=== PATIENT | male | born 2000 | race Caucasian/White ===

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

== ENCOUNTER 2020-12-24 12:22 | Emergency (ER) | payer MEDICAID, OTHER ==
[2020-12-24 12:37] VITALS: BP 158/101; PULSE 70
[2020-12-24] MEDS ORDERED: ceFAZolin 1 GM in Premix Bag 1 BAG IV ONE (13:25)
--- NOTE | 2020-12-24 13:38 | CR ---
Right second finger: 4 radiographs of the right second finger were obtained. Comparison: No previous study. Fracture is seen within the distal proximal phalanx of the second finger with mild displacement. Soft tissue swelling is noted. No additional bony abnormality is appreciated. Impression: 1. Mildly displaced fracture within the distal proximal phalanx of the right second finger. 2. Soft tissue swelling. Diagnostic code #3
[2020-12-24] MEDS ORDERED: Acetaminophen/HYDROcodone 325-5 MG Tab PO ONE (13:50)
--- NOTE | 2020-12-24 13:56 | EDM.PDOC ---
ED HPI GENERAL MEDICAL PROBLEM - General Chief Complaint: Upper Extremity Injury/Pain Stated Complaint: SMASHED FINGER Time Seen by Provider: 12/24/20 12:28 Source of Information: Reports: Patient, RN Notes Reviewed History Limitations: Reports: No Limitations - History of Present Illness INITIAL COMMENTS - FREE TEXT/NARRATIVE: Patient is a 20-year-old male presenting to the emergency department with complaints of crush injury to the right index finger. Reports that he got it smashed between a fadi and an axle. Reports full sensation but limited range of motion of the finger. He is up-to-date on his tetanus vaccination. Right Finger-Index Pain Score (Numeric/FACES): 8 - Related Data Allergies Allergy/AdvReac Type Severity Reaction Status Date / Time No Known Allergies Allergy Verified 12/24/20 12:34 Home Meds: Home Meds Albuterol [Proventil HFA] 2 puff INH QID PRN 03/21/16 [History] Hydrocodone/Acetaminophen [Hydrocodone-Acetamin 5-325 mg] 1 each PO Q4H PRN #12 tablet 12/24/20 [Rx] cephALEXin [Cephalexin] 500 mg PO Q6H 5 Days #20 tablet 12/24/20 [Rx] Past Medical History HEENT History: Reports: Impaired Vision, Other (See Below) Other HEENT History: wears glasses Respiratory History: Reports: Asthma Psychiatric History: Reports: ADHD Other Psychiatric History: no longer taking meds - Past Surgical History HEENT Surgical History: Reports: None Respiratory Surgical History: Reports: None Social & Family History - Family History Family Medical History: No Pertinent Family History - Tobacco Use Tobacco Use Status *Q: Current Every Day Tobacco User Years of Tobacco use: 4 Packs/Tins Daily: 0.5 - Caffeine Use Caffeine Use: Reports: None - Recreational Drug Use Recreational Drug Use: No - Living Situation & Occupation Living situation: Reports: Single Occupation: Student Review of Systems - Review of Systems Review Of Systems: Comprehensive ROS is negative, except as noted in HPI. ED EXAM, GENERAL - Physical Exam Exam: See Below General Appearance: Alert, WD/WN, No Apparent Distress Respiratory/Chest: No Respiratory Distress, Lungs Clear, Normal Breath Sounds, No Accessory Muscle Use, Chest Non-Tender Cardiovascular: Normal Peripheral Pulses, Regular Rate, Rhythm, No Edema, No Gallop, No JVD, No Murmur, No Rub Extremities: Other (superficial soft tissue avulsions to the ventral medial aspect of the proximal phalanx of the right second finger. superficial skin avulsion to the webbing between the second and third fingers. swelling and slight deformity of the proximal phalynx) Neurological: Alert, Oriented, CN II-XII Intact, Normal Cognition, Normal Gait, Normal Reflexes, No Motor/Sensory Deficits Psychiatric: Normal Affect, Normal Mood Course - Vital Signs Last Recorded V/S: Last Vital Signs Temp 96.0 F L 12/24/20 12:34 Pulse 70 12/24/20 12:34 Resp 14 12/24/20 12:34 BP 158/101 H 12/24/20 12:34 Pulse Ox 98 12/24/20 12:34 - Orders/Labs/Meds Meds: Medications Discontinued Medications Generic Name Dose Route Start Last Admin Trade Name Freq PRN Reason Stop Dose Admin Hydrocodone Bitart/Acetaminophen 1 tab 12/24/20 13:50 12/24/20 14:15 Acetaminophen/Hydrocodone 325-5 Mg Tab PO 12/24/20 13:51 1 tab ONETIME ONE Administration Cefazolin Sodium/Dextrose 1 gm 50 mls @ 100 mls/hr 12/24/20 13:25 12/24/20 13:51 / Premix IV 12/24/20 13:54 100 mls/hr ONETIME ONE Administration - Re-Assessments/Exams Free Text/Narrative Re-Assessment/Exam: Patient is a 20-year-old male presenting to the emergency department with complaints of crush injury to his right index finger. Reports that he had his finger smashed between a fadi and an axle. On exam, there is moderate amount of swelling. He has superficial soft tissue avulsions to the ventral medial aspect of the proximal phalanx of the right second finger. There is also a superficial skin avulsion to the webbing between the second and third fingers. There is a slight deformity of the proximal phalanx. I have ordered x-rays of the right second finger. 12/24/20 14:01 X-rays of the right second finger show a slightly displaced fracture of the proximal phalanx. Wounds have been cleansed with Betadine and sterile saline. The skin avulsions are superficial and the overlying skin is too thin to allow for suturing. I did debride the nonviable tissues. Bacitracin and Vaseline in fused gauze was applied over these the area was wrapped in gauze. Aluminum finger splint with Coban was then applied. Patient tolerated procedure well. CMS is intact distal to the injury site after splint application. Capillary refill less than 2 seconds. I will give him 1 g of Ancef IV for infection prophylaxis. He will then be started on cephalexin. [facility] [place]. I did call and speak with them to schedule appointment, however the unable to schedule until they have the Worker's Comp. number available. Patient will obtain this number and contact them this afternoon to set up a follow-up appointment. They did advise that they should be able to see him either tomorrow or the next day for evaluation. I will send prescription for hydrocodone with Tylenol as needed for pain. Discharge instructions as documented. Departure - Departure Time of Disposition: 14:21 Disposition: Home, Self-Care 01 Condition: Good Clinical Impression: Phalanx, proximal fracture of finger Qualifiers: Encounter type: initial encounter Finger: index finger Fracture type: closed Fracture alignment: displaced Laterality: right Qualified Code(s): S62.610A - Displaced fracture of proximal phalanx of right index finger, initial encounter for closed fracture - Discharge Information *PRESCRIPTION DRUG MONITORING PROGRAM REVIEWED*: Yes *COPY OF PRESCRIPTION DRUG MONITORING REPORT IN PATIENT ZEYNEP: No Prescriptions: cephALEXin [Cephalexin] 500 mg PO Q6H 5 Days #20 tablet Hydrocodone/Acetaminophen [Hydrocodone-Acetamin 5-325 mg] 1 each PO Q4H PRN #12 tablet PRN Reason: Pain Instructions: Finger Fracture, Adult, [id number] Referrals: Chris Moya MD [Ordering Only Provider] - Forms: ED Department Discharge, ED Return to Work/School Form Additional Instructions: You were seen in the emergency department today for evaluation of injury to your right index finger. X-rays are completed and show a fracture of your proximal phalanx. The wounds were cleansed and debrided of nonviable tissue. Dressing and an aluminum finger splint was applied. This should remain on at all times. You received a dose of IV antibiotics in the ER to prevent infection. You been started on cephalexin for ongoing infection prevention. Recommend routine Tylenol. For pain not relieved by this, a prescription for hydrocodone with Tylenol has been provided. You may not work or drive for 12 hours after taking this as it can be sedating. Referral has been sent to [facility] in [place] for you to be seen by hand specialist. They require your worker's compensation claim in order to schedule an appointment. Please get this number and call them this afternoon to schedule an appointment. They should be able to see you either tomorrow or Tuesday. Keep the dressing on your finger on, clean, and dry until evaluated by orthopedics. If they are unable to see you this week, the dressing over the wounds show be changed on Tuesday or Tuesday. If you are uncomfortable doing this at home, you may follow-up in the clinic for a dressing change. If you should experience any new or worsening symptoms of concern, please do not hesitate to return to the ER for reevaluation. Sepsis Event Note (ED) - Evaluation Sepsis Screening Result: No Definite Risk
== END 2020-12-24 14:32 | disposition home or self-care (01) ==
LOC: JD.ED 12:22
DX: S62.610A Displaced fracture of proximal phalanx of right index finger, initial encounter for closed fracture (principal); J45.909 Unspecified asthma, uncomplicated; Z72.0 Tobacco use; W23.0XXA Caught, crushed, jammed, or pinched between moving objects, initial encounter
CPT/HCPCS: 73140; 96365; 99283; A9270; J0690